=== PATIENT | male | born 1985 | race Caucasian/White ===

== ENCOUNTER 2019-07-13 14:45 | Inpatient (IN) | payer MEDICARE, MEDICAID ==
[~2019-07-13] VITALS: Ht 185.4 cm; Wt 88.5 kg
[2019-07-13] MEDS ORDERED: SODIUM CHLORIDE 0.9% 1,000 ML IV ONE (15:25)
[2019-07-13] MEDS ORDERED: LORAZEPAM 2MG/ML CPJ IV ONE (15:30)
[2019-07-13 16:19] LABS: BASOPHILS % 0.4 % (0.0-2.0); EOSINOPHILS % 5.2 % (0.0-5.0); HEMATOCRIT. 45.1 % (42.0-52.0); HEMOGLOBIN. 15.5 g/dL (14.0-18.0); LYMPHOCYTES % 23.3 % (20.0-50.0); MEAN CORPUSCULAR HEMOGLOBIN 31.2 pg (28.0-32.0); MEAN CORPUSCULAR VOLUME 90.5 fL (80.0-94.0); MEAN PLATELET VOLUME 7.4 fl (7.4-10.4); MONOCYTES % 10.5 % (2.0-8.0); NEUTROPHILS % 60.6 % (40.0-76.0); PLATELET 233 x1000/uL (130-400); RED BLOOD CELL COUNT 4.98 mill/uL (4.7-6.1); RED CELL DISTRIBUTION WIDTH 13.9 % (11.6-14.6)
[2019-07-13 16:23] LABS: CHLORIDE 105 mEq/L (98-107)
[2019-07-13 16:27] LABS: ETHANOL BLOOD < 10 mg/dL
[2019-07-13 18:49] LABS: CLARITY URINE CLEAR (CLEAR); COLOR URINE YELLOW (YELLOW); KETONES URINE NEGATIVE (NEGATIVE); LEUKOCYTE ESTERASE URINE NEGATIVE (NEGATIVE); NITRITE URINE NEGATIVE (NEGATIVE); OCCULT BLOOD URINE NEGATIVE (NEGATIVE); PH URINE 6.5 (4.5-8.0); PROTEIN URINE NEGATIVE (NEGATIVE); SPECIFIC GRAVITY URINE 1.012 (1.005-1.030); UROBILINOGEN URINE 0.2 E.U./dL (0.2-1.0)
[2019-07-13 18:59] LABS: *AMPHETAMINES SCREEN URINE NEGATIVE (NEGATIVE); *BARBITURATES SCREEN URINE NEGATIVE (NEGATIVE); *BENZODIAZEPINES SCREEN URINE NEGATIVE (NEGATIVE); *COCAINE SCREEN URINE NEGATIVE (NEGATIVE)
[2019-07-13 19:00] LABS: CANNABINOID URINE SCREEN NEGATIVE (NEGATIVE); METHADONE URINE SCREEN NEGATIVE (NEGATIVE); OPIATES URINE SCREEN NEGATIVE (NEGATIVE); PHENCYCLIDINE URINE SCREEN NEGATIVE (NEGATIVE)
[2019-07-13 22:00] VITALS: BP 130/87
[2019-07-13] MEDS ORDERED: BUSP10TA3 PO (22:38)
[2019-07-13] MEDS ORDERED: PHEN100C4 PO (22:38)
[2019-07-13] MEDS ORDERED: LAMO100T65 PO (22:38)
[2019-07-13] MEDS ORDERED: LORAZEPAM 2MG/ML CPJ IV PRN (23:30)
[2019-07-13] MEDS ORDERED: ONDANSETRON HCL 4MG/2ML INJ IV PRN (23:30)
[2019-07-13] MEDS ORDERED: DIPHENHYDRAMINE 50MG/ML VIAL IV PRN (23:30)
[2019-07-13] MEDS ORDERED: MAGNESIUM/ALUMINUM HYDROXIDE/SIMETHICONE 30ML UDC PO PRN (23:30)
[2019-07-13] MEDS ORDERED: CLONIDINE 0.1MG TABLET PO PRN (23:30)
[2019-07-13] MEDS ORDERED: ACETAMINOPHEN 325MG TABLET PO PRN (23:30)
[2019-07-13] MEDS: SODIUM CHLORIDE 0.9% 1,000 ML IV SCH (23:46)
[2019-07-14] VITALS: BP 129/80
[2019-07-14 06:00] VITALS: BP 129/80
[2019-07-14] MEDS: SODIUM CHLORIDE 0.9% INJ 3ML FLUSH IVF SCH ×3 (06:15→20:30)
[2019-07-14 08:00] VITALS: BP 132/86
[2019-07-14] MEDS ORDERED: LEVETIRACETAM 500 MG in SODIUM CHLORIDE 0.9% 100 ML IV SCH (09:00)
[2019-07-14] MEDS: SODIUM CHLORIDE 0.9% 1,000 ML IV SCH (09:22)
[2019-07-14 11:58] VITALS: BP 119/74
[2019-07-14 16:00] VITALS: BP 118/79
[2019-07-14 20:00] VITALS: BP 139/89
[2019-07-14] MEDS: LAMOTRIGINE 100MG TABLET PO SCH (20:30)
[2019-07-14] MEDS: BUSPIRONE HCL 10MG TABLET PO SCH (20:30)
[2019-07-15] VITALS: BP 130/70
[2019-07-15 04:00] VITALS: BP 113/75
[2019-07-15 08:00] VITALS: BP 121/74
[2019-07-15] MEDS: LAMOTRIGINE 100MG TABLET PO SCH (08:21)
[2019-07-15] MEDS: BUSPIRONE HCL 10MG TABLET PO SCH (08:21)
[2019-07-15] MEDS: SODIUM CHLORIDE 0.9% INJ 3ML FLUSH IVF SCH (08:21)
[2019-07-15] MEDS ORDERED: PHENYTOIN SODIUM EXTENDED 100MG CAPSULE PO SCH (09:00)
[2019-07-15] MEDS ORDERED: PHENYTOIN SODIUM EXTENDED 100MG CAPSULE PO NR (11:00)
[2019-07-15 12:00] VITALS: BP 141/83
[2019-07-15 13:00] VITALS: BP 127/71
[2019-07-15 16:00] VITALS: BP 127/79
== END 2019-07-15 19:00 | disposition home or self-care (01) | DRG 101 ==
LOC: ER 14:45 → 7WST 20:21 → EDBEDREQ 20:25 → EDBEDREQTM 20:25 → ENRESERV 21:29
PROVIDERS: ADMIT Internal Medicine; ATTEND Internal Medicine
DX: G40.909 Epilepsy, unspecified, not intractable, without status epilepticus (principal); Y92.89 Other specified places as the place of occurrence of the external cause; T42.0X5A Adverse effect of hydantoin derivatives, initial encounter; Z72.0 Tobacco use; Z91.018 Allergy to other foods; Z88.2 Allergy status to sulfonamides; Z88.0 Allergy status to penicillin
CPT/HCPCS: 36415; 71045; 80185; 80305; 80320; 81003; 93005; 99285; J1953; J2060; J7030; J7050; G0480

== ENCOUNTER 2019-07-27 03:28 | Inpatient (IN) | payer OTHER, MEDICAID ==
[~2019-07-27] VITALS: Ht 182.9 cm; Wt 97.5 kg
[~2019-07-27 03:28] MED LIST: BUSP10TA3 PO; LAMO100T65 PO
[2019-07-27] MEDS ORDERED: SODIUM CHLORIDE 0.9% 1,000 ML IV ONE (04:14)
[2019-07-27 04:37] LABS: BASOPHILS % 0.8 % (0.0-2.0); EOSINOPHILS % 8.6 % (0.0-5.0); HEMOGLOBIN. 15.7 g/dL (14.0-18.0); LYMPHOCYTES % 32.4 % (20.0-50.0); MEAN CORPUSCULAR HEMOGLOBIN 30.2 pg (28.0-32.0); MEAN CORPUSCULAR VOLUME 90.5 fL (80.0-94.0); MEAN PLATELET VOLUME 7.9 fl (7.4-10.4); MONOCYTES % 12.4 % (2.0-8.0); NEUTROPHILS % 45.8 % (40.0-76.0); PLATELET 212 x1000/uL (130-400); RED CELL DISTRIBUTION WIDTH 14.4 % (11.6-14.6)
[2019-07-27 04:41] LABS: CHLORIDE 110 mEq/L (98-107)
[2019-07-27] MEDS ORDERED: LORAZEPAM 2MG/ML CPJ IV ONE (04:45)
[2019-07-27 04:46] LABS: ETHANOL BLOOD < 10 mg/dL
[2019-07-27 05:17] LABS: CARBAMAZEPINE < 0.5 ug/mL (4-12)
[2019-07-27 06:04] LABS: CLARITY URINE CLEAR (CLEAR); COLOR URINE YELLOW (YELLOW); KETONES URINE NEGATIVE (NEGATIVE); LEUKOCYTE ESTERASE URINE NEGATIVE (NEGATIVE); NITRITE URINE NEGATIVE (NEGATIVE); OCCULT BLOOD URINE NEGATIVE (NEGATIVE); PH URINE 6.5 (4.5-8.0); PROTEIN URINE NEGATIVE (NEGATIVE); SPECIFIC GRAVITY URINE 1.012 (1.005-1.030); UROBILINOGEN URINE 0.2 E.U./dL (0.2-1.0)
[2019-07-27 06:18] LABS: CANNABINOID URINE SCREEN NEGATIVE (NEGATIVE); METHADONE URINE SCREEN NEGATIVE (NEGATIVE); OPIATES URINE SCREEN NEGATIVE (NEGATIVE); PHENCYCLIDINE URINE SCREEN NEGATIVE (NEGATIVE)
[2019-07-27 06:20] LABS: *AMPHETAMINES SCREEN URINE NEGATIVE (NEGATIVE); *BARBITURATES SCREEN URINE NEGATIVE (NEGATIVE); *BENZODIAZEPINES SCREEN URINE NEGATIVE (NEGATIVE); *COCAINE SCREEN URINE NEGATIVE (NEGATIVE)
[2019-07-27 08:41] VITALS: BP 121/89
[2019-07-27 10:30] VITALS: BP 121/89
[2019-07-27] MEDS ORDERED: BUSPAR PO ×2 (11:03)
[2019-07-27] MEDS ORDERED: LAMICTAL PO ×2 (11:03)
[2019-07-27] MEDS ORDERED: DILANTIN PO ×2 (11:03)
[2019-07-27] MEDS ORDERED: ACETAMINOPHEN 325MG TABLET PO PRN (11:15)
[2019-07-27] MEDS ORDERED: ONDANSETRON HCL 4MG/2ML INJ IV PRN (11:15)
[2019-07-27] MEDS ORDERED: CLONIDINE 0.1MG TABLET PO PRN (11:15)
[2019-07-27 12:00] VITALS: BP 122/87
[2019-07-27] MEDS: SODIUM CHLORIDE 0.9% 1,000 ML IV SCH ×2 (12:52→23:42)
[2019-07-27] MEDS: LAMOTRIGINE 100MG TABLET PO SCH (14:20)
[2019-07-27 16:00] VITALS: BP 124/80
[2019-07-27 20:00] VITALS: BP 129/87
[2019-07-27] MEDS: BUSPIRONE HCL 10MG TABLET PO SCH (21:01)
[2019-07-27] MEDS: LORAZEPAM 2MG/ML CPJ IV PRN (21:02)
[2019-07-28] VITALS: BP 133/81
[2019-07-28 07:10] LABS: CHLORIDE 109 mEq/L (98-107)
[2019-07-28 07:22] LABS: BASOPHILS % 0.5 % (0.0-2.0); EOSINOPHILS % 6.9 % (0.0-5.0); HEMATOCRIT. 46.6 % (42.0-52.0); HEMOGLOBIN. 16.1 g/dL (14.0-18.0); LYMPHOCYTES % 32.2 % (20.0-50.0); MEAN PLATELET VOLUME 7.7 fl (7.4-10.4); MONOCYTES % 13.2 % (2.0-8.0); NEUTROPHILS % 47.2 % (40.0-76.0); PLATELET 205 x1000/uL (130-400); RED BLOOD CELL COUNT 5.18 mill/uL (4.7-6.1); RED CELL DISTRIBUTION WIDTH 14.3 % (11.6-14.6)
[2019-07-28] MEDS: LAMOTRIGINE 100MG TABLET PO SCH (08:33)
[2019-07-28] MEDS: BUSPIRONE HCL 10MG TABLET PO SCH ×2 (08:33→20:50)
[2019-07-28 12:00] VITALS: BP 128/82
[2019-07-28] MEDS: SODIUM CHLORIDE 0.9% 1,000 ML IV SCH (13:53)
[2019-07-28 16:00] VITALS: BP 111/69
[2019-07-28] MEDS: LAMOTRIGINE 25MG TABLET PO SCH (16:12)
[2019-07-28] MEDS ORDERED: PHENYTOIN SODIUM EXTENDED 100MG CAPSULE PO SCH (21:00)
[2019-07-29] MEDS: LORAZEPAM 2MG/ML CPJ IV PRN (00:01)
[2019-07-29 08:00] VITALS: BP 124/82
[2019-07-29] MEDS: BUSPIRONE HCL 10MG TABLET PO SCH (09:14)
[2019-07-29] MEDS: LAMOTRIGINE 25MG TABLET PO SCH ×2 (09:14→19:07)
[2019-07-29] MEDS: SODIUM CHLORIDE 0.9% 1,000 ML IV SCH (09:19)
[2019-07-29] MEDS ORDERED: TRAMADOL 50MG TABLET PO PRN (11:45)
[2019-07-29 12:00] VITALS: BP 134/85
[2019-07-29 15:55] VITALS: BP 127/74
[2019-07-29 16:00] VITALS: BP 127/74
[2019-07-29 20:00] VITALS: BP 128/79
== END 2019-07-29 20:20 | disposition home or self-care (01) | DRG 101 ==
LOC: ER 03:28 → ENRESERV 07:42 → 6WST 08:57
PROVIDERS: ADMIT Hospitalist; ATTEND Hospitalist
DX: G40.909 Epilepsy, unspecified, not intractable, without status epilepticus (principal); F41.9 Anxiety disorder, unspecified; F17.200 Nicotine dependence, unspecified, uncomplicated; Z79.899 Other long term (current) drug therapy; Z88.0 Allergy status to penicillin
CPT/HCPCS: 36415; 80156; 80165; 80185; 80305; 80320; 81003; 99291; J2060; J7030; G0480

== ENCOUNTER 2019-08-10 18:27 | Inpatient (IN) | payer OTHER, MEDICAID ==
[~2019-08-10] VITALS: Ht 185.4 cm; Wt 88.5 kg
[~2019-08-10 18:27] MED LIST changes: -BUSP10TA3 PO; +BUSPAR PO; +DILANTIN PO; +LAMICTAL PO; -LAMO100T65 PO
[2019-08-10] MEDS ORDERED: PHENYTOIN SODIUM 100MG/2ML VIAL IV ONE (23:15)
[2019-08-10] MEDS ORDERED: LORAZEPAM 1MG TABLET PO ONE (23:15)
[2019-08-11 00:37] LABS: BASOPHILS % 0.5 % (0.0-2.0); EOSINOPHILS % 7.4 % (0.0-5.0); HEMATOCRIT. 42.8 % (42.0-52.0); HEMOGLOBIN. 14.7 g/dL (14.0-18.0); MEAN CORPUSCULAR HEMOGLOBIN 30.8 pg (28.0-32.0); MEAN CORPUSCULAR VOLUME 89.4 fL (80.0-94.0); MEAN PLATELET VOLUME 6.9 fl (7.4-10.4); MONOCYTES % 9.7 % (2.0-8.0); NEUTROPHILS % 46.4 % (40.0-76.0); PLATELET 200 x1000/uL (130-400); RED BLOOD CELL COUNT 4.78 mill/uL (4.7-6.1); RED CELL DISTRIBUTION WIDTH 14.2 % (11.6-14.6)
[2019-08-11 00:48] LABS: CHLORIDE 109 mEq/L (98-107)
[2019-08-11 05:10] VITALS: BP 124/72
[2019-08-11] MEDS ORDERED: BUSP10TA3 PO (05:40)
[2019-08-11] MEDS ORDERED: LORA1TAB PO (05:42)
[2019-08-11] MEDS ORDERED: BUSP15TA3 PO (05:44)
[2019-08-11] MEDS ORDERED: LAM1 PO (05:45)
[2019-08-11] MEDS ORDERED: PHEN300C6 PO (05:51)
[2019-08-11] MEDS ORDERED: HYDRALAZINE 20MG/ML VIAL IV PRN (07:00)
[2019-08-11] MEDS ORDERED: MAGNESIUM/ALUMINUM HYDROXIDE/SIMETHICONE 30ML UDC PO PRN (07:00)
[2019-08-11] MEDS ORDERED: ONDANSETRON HCL 4MG/2ML INJ IV PRN (07:00)
[2019-08-11] MEDS ORDERED: CLONIDINE 0.1MG TABLET PO PRN (07:00)
[2019-08-11] MEDS ORDERED: DOCUSATE SODIUM 100MG CAPSULE PO PRN (07:00)
[2019-08-11] MEDS ORDERED: DEXTROSE 50% WATER 50ML SYRINGE IV PRN (07:00)
[2019-08-11] MEDS ORDERED: DIPHENHYDRAMINE 50MG/ML VIAL IV PRN (07:00)
[2019-08-11] MEDS ORDERED: MORPHINE SULFATE 2 MG/ML CPJ (NOT FOR IM USE) IV PRN (07:00)
[2019-08-11] MEDS ORDERED: NA PHOS,M-B/NA PHOS,DI-BA ENEMA 118ML PR PRN (07:00)
[2019-08-11] MEDS ORDERED: HYDROCODONE/ACETAMINOPHEN 10/325MG TABLET PO PRN (07:00)
[2019-08-11] MEDS ORDERED: GUAIFENESIN 200MG/10ML SUGAR FREE UDC PO PRN (07:00)
[2019-08-11] MEDS ORDERED: IPRATROPIUM/ALBUTEROL 0.5-3(2.5)MG/3ML NEB HHN PRN (07:00)
[2019-08-11 08:00] VITALS: BP 121/82
[2019-08-11] MEDS ORDERED: PHENYTOIN SODIUM 300 MG PO SCH (09:00)
[2019-08-11] MEDS ORDERED: MEDICATION NOT ON FORMULARY EA (Buspirone Hcl 15 MG) PO SCH (09:00)
[2019-08-11] MEDS: LAMOTRIGINE 100MG TABLET PO SCH (09:12)
[2019-08-11] MEDS: BUSPIRONE HCL 5MG TABLET PO SCH ×2 (09:12→16:33)
[2019-08-11] MEDS: PHENYTOIN SODIUM EXTENDED 100MG CAPSULE PO SCH ×2 (09:12→16:34)
[2019-08-11] MEDS: ENOXAPARIN 40MG/0.4ML SYR SUBCUT SCH (09:13)
[2019-08-11] MEDS: LORAZEPAM 2MG/ML CPJ IV PRN ×3 (10:09→20:16)
[2019-08-11 12:00] VITALS: BP 132/70
[2019-08-11] MEDS: SODIUM CHLORIDE 0.9% INJ 3ML FLUSH IVF SCH ×2 (13:18→21:46)
[2019-08-11] MEDS: DIVALPROEX SODIUM 500MG ER TABLET PO SCH (15:24)
[2019-08-11 16:00] VITALS: BP 118/80
[2019-08-11 16:33] LABS: CREATINE KINASE 65 IU/L (39-308)
[2019-08-11 16:35] LABS: CREATINE KINASE MB FRACTION < 1.0 ng/mL (0.5-3.6)
[2019-08-11 20:00] VITALS: BP 133/86
[2019-08-11] MEDS: ACETAMINOPHEN 325MG TABLET PO PRN (20:16)
[2019-08-12] VITALS: BP 120/84
[2019-08-12 01:19] LABS: CREATINE KINASE 53 IU/L (39-308)
[2019-08-12 01:22] LABS: CREATINE KINASE MB FRACTION < 1.0 ng/mL (0.5-3.6)
[2019-08-12 04:00] VITALS: BP 113/80
[2019-08-12] MEDS: SODIUM CHLORIDE 0.9% INJ 3ML FLUSH IVF SCH ×3 (05:54→22:13)
[2019-08-12 06:46] LABS: BASOPHILS % 0.4 % (0.0-2.0); EOSINOPHILS % 7.2 % (0.0-5.0); HEMATOCRIT. 44.6 % (42.0-52.0); HEMOGLOBIN. 15.7 g/dL (14.0-18.0); LYMPHOCYTES % 36.3 % (20.0-50.0); MEAN CORPUSCULAR HEMOGLOBIN 31.6 pg (28.0-32.0); MEAN CORPUSCULAR VOLUME 89.9 fL (80.0-94.0); MEAN PLATELET VOLUME 7.2 fl (7.4-10.4); NEUTROPHILS % 44.1 % (40.0-76.0); PLATELET 213 x1000/uL (130-400); RED BLOOD CELL COUNT 4.96 mill/uL (4.7-6.1); RED CELL DISTRIBUTION WIDTH 13.9 % (11.6-14.6)
[2019-08-12 07:24] LABS: CHLORIDE 108 mEq/L (98-107)
[2019-08-12 07:43] LABS: T4 FREE 1.15 ng/dL (0.76-1.46)
[2019-08-12 08:00] VITALS: BP 133/72
[2019-08-12] MEDS: DIVALPROEX SODIUM 500MG ER TABLET PO SCH (08:59)
[2019-08-12] MEDS: LAMOTRIGINE 100MG TABLET PO SCH (08:59)
[2019-08-12] MEDS: BUSPIRONE HCL 5MG TABLET PO SCH ×2 (08:59→17:08)
[2019-08-12] MEDS: ENOXAPARIN 40MG/0.4ML SYR SUBCUT SCH (08:59)
[2019-08-12] MEDS: PHENYTOIN SODIUM EXTENDED 100MG CAPSULE PO SCH ×2 (08:59→17:08)
[2019-08-12 12:00] VITALS: BP 120/87
[2019-08-12] MEDS: LORAZEPAM 2MG/ML CPJ IV PRN ×3 (12:44→22:13)
[2019-08-12 16:00] VITALS: BP 117/81
[2019-08-12 20:00] VITALS: BP 133/87
[2019-08-13] VITALS: BP 104/75
[2019-08-13] MEDS: ACETAMINOPHEN 325MG TABLET PO PRN (01:50)
[2019-08-13 04:00] VITALS: BP 129/86
[2019-08-13] MEDS: SODIUM CHLORIDE 0.9% INJ 3ML FLUSH IVF SCH ×3 (05:41→21:01)
[2019-08-13] MEDS: LORAZEPAM 2MG/ML CPJ IV PRN ×4 (06:25→21:00)
[2019-08-13 08:00] VITALS: BP 128/86
[2019-08-13] MEDS: LAMOTRIGINE 100MG TABLET PO SCH (08:47)
[2019-08-13] MEDS: PHENYTOIN SODIUM EXTENDED 100MG CAPSULE PO SCH ×2 (08:47→16:59)
[2019-08-13] MEDS: DIVALPROEX SODIUM 500MG ER TABLET PO SCH (08:47)
[2019-08-13] MEDS: BUSPIRONE HCL 5MG TABLET PO SCH ×2 (08:48→16:59)
[2019-08-13] MEDS: ENOXAPARIN 40MG/0.4ML SYR SUBCUT SCH (08:48)
[2019-08-13 12:00] VITALS: BP 110/64
[2019-08-13 16:00] VITALS: BP 115/76
[2019-08-13 20:00] VITALS: BP 138/79
[2019-08-14] VITALS: BP 135/96
[2019-08-14 04:00] VITALS: BP 127/84
[2019-08-14] MEDS: SODIUM CHLORIDE 0.9% INJ 3ML FLUSH IVF SCH ×3 (05:55→22:09)
[2019-08-14 06:48] LABS: CHLORIDE 109 mEq/L (98-107)
[2019-08-14 08:00] VITALS: BP 132/63
[2019-08-14] MEDS: LAMOTRIGINE 100MG TABLET PO SCH (08:29)
[2019-08-14] MEDS: BUSPIRONE HCL 5MG TABLET PO SCH ×2 (08:29→19:32)
[2019-08-14] MEDS: DIVALPROEX SODIUM 500MG ER TABLET PO SCH ×2 (08:29→19:32)
[2019-08-14] MEDS: PHENYTOIN SODIUM EXTENDED 100MG CAPSULE PO SCH ×2 (08:29→19:32)
[2019-08-14] MEDS: ENOXAPARIN 40MG/0.4ML SYR SUBCUT SCH (08:30)
[2019-08-14] MEDS: LORAZEPAM 2MG/ML CPJ IV PRN ×3 (09:34→19:55)
[2019-08-14 10:21] LABS: BASOPHILS % 0.5 % (0.0-2.0); EOSINOPHILS % 4.2 % (0.0-5.0); HEMATOCRIT. 47.4 % (42.0-52.0); HEMOGLOBIN. 16.5 g/dL (14.0-18.0); LYMPHOCYTES % 18.4 % (20.0-50.0); MEAN CORPUSCULAR HEMOGLOBIN 31.1 pg (28.0-32.0); MEAN CORPUSCULAR VOLUME 89.3 fL (80.0-94.0); MEAN PLATELET VOLUME 7.3 fl (7.4-10.4); MONOCYTES % 7.7 % (2.0-8.0); NEUTROPHILS % 69.2 % (40.0-76.0); PLATELET 253 x1000/uL (130-400); RED BLOOD CELL COUNT 5.31 mill/uL (4.7-6.1)
[2019-08-14 12:00] VITALS: BP 113/69
[2019-08-14 16:00] VITALS: BP 125/81
[2019-08-14 20:00] VITALS: BP 139/71
[2019-08-15] VITALS: BP 102/71
[2019-08-15 04:00] VITALS: BP 111/80
[2019-08-15] MEDS: SODIUM CHLORIDE 0.9% INJ 3ML FLUSH IVF SCH (05:13)
[2019-08-15] MEDS: LORAZEPAM 2MG/ML CPJ IV PRN ×2 (07:00→11:22)
[2019-08-15 08:00] VITALS: BP 118/81
[2019-08-15] MEDS: BUSPIRONE HCL 5MG TABLET PO SCH ×2 (09:45→16:38)
[2019-08-15] MEDS: PHENYTOIN SODIUM EXTENDED 100MG CAPSULE PO SCH ×2 (09:45→16:38)
[2019-08-15] MEDS: DIVALPROEX SODIUM 500MG ER TABLET PO SCH ×2 (09:45→16:38)
[2019-08-15] MEDS: LAMOTRIGINE 100MG TABLET PO SCH (09:45)
[2019-08-15] MEDS: ENOXAPARIN 40MG/0.4ML SYR SUBCUT SCH (09:46)
[2019-08-15 12:00] VITALS: BP_SYST 124; BP_SYST 127; BP_DIAS 82; BP_DIAS 83
[2019-08-15 14:45] VITALS: BP 118/81
== END 2019-08-15 18:10 | disposition home health service (06) | DRG 101 ==
LOC: ER 18:27 → 5WST 08-11 00:08 → ENRESERV 08-11 03:46
PROVIDERS: ADMIT Internal Medicine; ATTEND Internal Medicine
PROC: 4A10X4Z Monitoring of Central Nervous Electrical Activity, External Approach (ICD-10-PCS; principal; 2019-08-12)
DX: G40.419 Other generalized epilepsy and epileptic syndromes, intractable, without status epilepticus (principal); S00.03XA Contusion of scalp, initial encounter; F17.210 Nicotine dependence, cigarettes, uncomplicated; F41.9 Anxiety disorder, unspecified; Z91.81 History of falling; Z79.899 Other long term (current) drug therapy; W18.39XA Other fall on same level, initial encounter; Y93.89 Activity, other specified; Y92.89 Other specified places as the place of occurrence of the external cause; Y99.8 Other external cause status; Z88.0 Allergy status to penicillin; Z88.2 Allergy status to sulfonamides
CPT/HCPCS: 36415; 70551; 80048; 80076; 80165; 80185; 82550; 82553; 84439; 84443; 84484; 96374; 97162; 99285; J1165; J1650; J2060